=== PATIENT | female | born 1935 | race Caucasian/White ===

== ENCOUNTER → 2016-07-07 | Outpatient (CLI) | payer MEDICARE, BC ==
[~2016-07-07] MED LIST: ACET-2930 PO; AMLO5TAB2 PO; ASPI-557 PO; AZIT250T PO; CARV25TA28 PO; CEFD300C3 PO; CHOL100047 PO; CRAN400T4 PO; ESCI20TA30 PO; FOSI10TA3 PO; FURO-153 PO; GARL1CAP7 PO; IOHEXOL 300 MG/ML 50ml INJECTION ONE; IOHEXOL 300 MG/ML 75ml INJECTION ONE; LACT1CAP73 PO; LOVA40TA70 PO; MULT-806 PO; NORMAL SALINE 100 ML ONE; OXYB10TA PO; POTA-81 PO; SALINE FLUSH 10ml SYRINGE ONE
--- NOTE | 2016-07-07 16:21 | DI ---
Indication: ITS.REASON: C83.38 Diffuse large B-cell lymphoma, lymph nodes of multiple sit PROCEDURE: CT NECK/CHEST/ABD/PELVIS W/C: Encounter: Initial Comparison: 12/27/2015 and 06/27/2015 Automated Exposure Control and Iterative Reconstruction dose reducing techniques were utilized. FINDINGS: CT neck: The craniofacial skeleton, orbits, and cervical spine are unremarkable in appearance for the patient's age. The larynx, oral cavity, oropharynx, and nasopharynx appear unremarkable without evidence of mass lesion or abnormal enhancement. The parotid, submandibular, and thyroid glands are symmetric in appearance and demonstrate normal enhancement. There is no evidence of cervical adenopathy or other abnormality. There are normal bilateral cervical lymph nodes noted. The thyroid gland is moderately heterogeneous without a definite discrete nodule. 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 There is moderate degenerative disc disease of the cervical spine, maximal at C5-6 and C6-7. There is also moderate posterior facet arthropathy. CT CHEST: The patient is status post median sternotomy. There is nonspecific somewhat patchy interstitial opacity with some linear and discoid atelectasis and/or scarring. No definite pleural effusion. No definite lobar consolidation. No definite mediastinal or hilar adenopathy. No pleural effusion. There is mild cord megaly. No pericardial effusion. CT ABDOMEN: There is some patient respiratory motion artifact. The gallbladder is surgically absent. There is a nonobstructing urinary calculus in the posterior right kidney that measure about 3 x 4 mm, unchanged. There is some nodular thickening of the left renal pelvis and there is a hyperdense focus centrally within the left ureter, just above the level of the iliac crest which may represent a left ureteral stone. The liver, spleen, pancreas, and adrenal glands are otherwise normal. There is moderate calcific atherosclerotic disease of the abdominal aorta without aneurysmal dilation. No retroperitoneal or mesenteric adenopathy. There is some oral contrast in the stomach, small bowel and proximal large bowel without evidence of bowel wall thickening or bowel wall distention. . CT PELVIS: A normal appendix is not identified with certainty. There is no significant distal colonic diverticulosis or evidence of diverticulitis. The urinary bladder is not distended. No definite inguinal adenopathy. There is no pelvic sidewall adenopathy. No free fluid. No definite bony destructive process. IMPRESSION: Possible left ureteral stone in the left ureter at about the level of the iliac crest with mild hydronephrosis. Subtle nodular thickening of the left renal collecting system which could represent stone or debris versus urothelial hyperplasia/neoplasia. No evidence for infectious or inflammatory process. No definite mass or adenopathy. .
== END ==
LOC: IMA 09:36
PROVIDERS: ATTEND Internal Medicine Hematology & Oncology
DX: C83.38 Diffuse large B-cell lymphoma, lymph nodes of multiple sites (principal); I70.0 Atherosclerosis of aorta; N28.9 Disorder of kidney and ureter, unspecified
CPT/HCPCS: 70491; 71260; 74177; J1642; J7050; Q9967

== ENCOUNTER → 2016-07-15 | Outpatient (CLI) | payer MEDICARE, BC ==
[~2016-07-15] MED LIST changes: -IOHEXOL 300 MG/ML 50ml INJECTION ONE; -IOHEXOL 300 MG/ML 75ml INJECTION ONE; -NORMAL SALINE 100 ML ONE; -SALINE FLUSH 10ml SYRINGE ONE
[2016-07-15 13:14] LABS: BLOOD, URINE 1+ (NEGATIVE); COLOR,URINE YELLOW (YELLOW); LEUKOCYTE ESTERASE ,URINE NEGATIVE (NEGATIVE); NITRITE,URINE POSITIVE (NEGATIVE); UROBILINOGEN,URINE 0.2 EU/DL (NORMAL)
[2016-07-15 13:21] LABS: BACTERIA,URINE 4+ (NEGATIVE); SQUAMOUS EPITHELIAL CELL,UR 0-5
== END ==
LOC: LAB 12:56
PROVIDERS: ATTEND Urology
DX: Z87.440 Personal history of urinary (tract) infections (principal); R82.90 Unspecified abnormal findings in urine
CPT/HCPCS: 81001; 87077; 87086; 87186